=== PATIENT | female | born 1960 ===

== ENCOUNTER 2023-11-16 15:49 | Inpatient (IN) | payer MEDICARE ==
[~2023-11-16] VITALS: Ht 162.5 cm; Wt 93.2 kg
[2023-11-16] MEDS ORDERED: NORVASC10 MG PO (16:11)
[2023-11-16] MEDS ORDERED: ASPIRIN ADULT L81 M2 PO (16:12)
[2023-11-16] MEDS ORDERED: FAMOTIDINE 1010 MG PO (16:13)
[2023-11-16] MEDS ORDERED: LASIX40 MG PO (16:16)
[2023-11-16] MEDS ORDERED: FLONASE ALLERG9.9 ML NAS (16:16)
[2023-11-16] MEDS ORDERED: IBU400 M1 PO (16:17)
[2023-11-16] MEDS ORDERED: Lopressor25 MG PO (16:20)
[2023-11-16] MEDS ORDERED: Ondansetron4 MG PO (16:23)
[2023-11-16] MEDS ORDERED: PERCOCET 10-321 EACH PO (16:31)
[2023-11-16] MEDS ORDERED: POTASSIUM CHLO20 ME3 PO (16:36)
[2023-11-16] MEDS ORDERED: ZANTAC PO (16:44)
[2023-11-16] MEDS ORDERED: Water, Sterile 10 ML VIAL IM PRN (16:50)
[2023-11-16] MEDS ORDERED: LORazepam 1 MG TAB PO PRN (16:50)
[2023-11-16] MEDS ORDERED: LORazepam 2 MG/ML VIAL IM PRN (16:50)
[2023-11-16] MEDS ORDERED: Ziprasidone Mesylate 20 MG VIAL IM PRN (16:50)
[2023-11-16] MEDS ORDERED: XANAX2 M1 PO (16:59)
[2023-11-16] MEDS ORDERED: BENADRYL ALLERG25 M5 PO (17:01)
[2023-11-16] MEDS ORDERED: Magnesium Hydroxide 30 ML UDC PO PRN (19:40)
[2023-11-16] MEDS ORDERED: ACETAMINOPHEN 325 MG TAB PO PRN (19:40)
[2023-11-16] MEDS ORDERED: MG-AL HYDROXIDE/SIMETICONE 30 ML UDC PO PRN (19:40)
[2023-11-16] MEDS ORDERED: Menthol/Zinc Oxide 4 GM THIN T PRN (20:00)
[2023-11-16 21:00] VITALS: BP 131/85
[2023-11-16] MEDS ORDERED: ALPRAZolam 0.5 MG TAB PO SCH (21:00)
[2023-11-16] MEDS ORDERED: Mirtazapine 15 MG TAB PO SCH (21:00)
[2023-11-16] MEDS ORDERED: BUDESONIDE 0.5 MG AMP NEB SCH (22:55)
[2023-11-17 06:40] LABS: BASO # 0.1 10*3/uL (0.0-0.1); BASO % 1.1 % (0.0-1.0); EOS # 0.5 10*3/uL (0.0-0.4); EOS % 4.9 % (1.0-4.0); HEMATOCRIT 42.9 % (37.0-47.0); LYMPH # 3.2 10*3/uL (1.3-4.4); LYMPH % 33.7 % (27.0-41.0); MEAN CELL VOLUME 92.7 fl (81.0-99.0); MEAN CORPUSCULAR HGB 30.9 pg (27.0-31.0); MEAN CORPUSCULAR HGB CONC 33.3 g/dl (33.0-37.0); MEAN PLATELET VOLUME 10.4 fl (9.6-12.3); MONO # 0.5 10*3/uL (0.1-1.0); MONO % 5.5 % (3.0-9.0); NEUT # 5.2 10*3/uL (2.3-7.9); NEUT % 54.6 % (47.0-73.0); PLATELET COUNT AUTOMATED 263 10*3/uL (130-400); RED BLOOD COUNT 4.63 10*6/uL (4.10-5.10); RED CELL DISTRI WIDTH 12.7 % (0-14.5); WHITE BLOOD COUNT 9.5 10*3/uL (4.8-10.8)
[2023-11-17 07:30] LABS: ALKALINE PHOSPHATASE 88 U/L (46-116); BUN 10 mg/dl (9-23); CHLORIDE 105 mmol/L (98-107); CHOLESTEROL 178 mg/dL (<200); LDL CHOLESTEROL 111 mg/dL (9-159); POTASSIUM 3.1 mmol/L (3.4-5.1); SGPT/ALT 14 U/L (5-49); TOTAL PROTEIN 7.3 gm/dL (6.0-8.0); TRIGLYCERIDES 123 mg/dl (<150)
[2023-11-17 08:00] VITALS: BP 150/57
[2023-11-17] MEDS ORDERED: POTASSIUM CHLORIDE 20 MEQ TAB PO ONE (08:15)
[2023-11-17] MEDS ORDERED: FUROSEMIDE 40 MG TAB PO SCH (09:00)
[2023-11-17] MEDS ORDERED: amLODIPine besylate 10 MG TAB PO SCH (09:00)
[2023-11-17] MEDS ORDERED: FAMOTIDINE 10 MG TAB PO SCH (09:00)
[2023-11-17] MEDS ORDERED: ASPIRIN ENTERIC COATED 81 MG TAB PO SCH (09:00)
[2023-11-17] MEDS ORDERED: Metoprolol Tartrate 25 MG TAB PO SCH (09:00)
[2023-11-17 09:14] LABS: VITAMIN D, 25-HYDROXY 16.1 ng/mL (30-100)
[2023-11-17] MEDS ORDERED: FLUTICASONE PROPIONATE 100 mcg INHALER INH SCH (10:00)
[2023-11-17 10:58] LABS: BILIRUBIN Negative (Negative); BLOOD Negative (Negative); CLARITY Clear (Clear); COLOR Yellow (Yellow); GLUCOSE Negative (Negative); KETONE Negative (Negative); LEUKO ESTERASE Trace (Negative); NITRITE Negative (Negative); PH 6.5 (4.5-8.0)
[2023-11-17 11:58] LABS: BACTERIA 1+; MUCOUS 1+
[2023-11-17] MEDS ORDERED: ALPRAZolam 0.5 MG TAB PO SCH (13:00)
[2023-11-17 20:00] VITALS: BP 119/72
[2023-11-18 08:00] VITALS: BP 137/60
[2023-11-18] MEDS ORDERED: MIRTAZAPINE15 M2 PO (10:58)
== END 2023-11-18 12:55 | disposition home or self-care (01) | DRG 885 ==
LOC: 3N 15:49
PROVIDERS: ADMIT Psychiatry & Neurology Psychiatry; ATTEND Psychiatry & Neurology Psychiatry
DX: F33.9 Major depressive disorder, recurrent, unspecified (principal); I11.0 Hypertensive heart disease with heart failure; R45.851 Suicidal ideations; E87.1 Hypo-osmolality and hyponatremia; E87.6 Hypokalemia; G35 Multiple sclerosis; I77.810 Thoracic aortic ectasia; I50.9 Heart failure, unspecified; I25.10 Atherosclerotic heart disease of native coronary artery without angina pectoris; G40.309 Generalized idiopathic epilepsy and epileptic syndromes, not intractable, without status epilepticus; M79.7 Fibromyalgia; K21.9 Gastro-esophageal reflux disease without esophagitis; Z87.891 Personal history of nicotine dependence; Z90.710 Acquired absence of both cervix and uterus; Z90.49 Acquired absence of other specified parts of digestive tract; Z83.3 Family history of diabetes mellitus; Z82.3 Family history of stroke; Z82.49 Family history of ischemic heart disease and other diseases of the circulatory system; Z88.7 Allergy status to serum and vaccine; Z88.8 Allergy status to other drugs, medicaments and biological substances; Z91.030 Bee allergy status; Z79.82 Long term (current) use of aspirin; Z79.899 Other long term (current) drug therapy